=== PATIENT | male | born 1990 | race Two or more races ===

== ENCOUNTER 2025-04-03 22:22 | Emergency (ER) | payer MEDICAID, OTHER ==
[~2025-04-03] VITALS: Ht 175.3 cm; Wt 72.7 kg
[2025-04-03 22:45] VITALS: PULSE 65; RESP 12; O2SAT 99
--- NOTE | 2025-04-03 22:50 | ED.PDOC ---
Psychiatric HPI Comments HPI: Initial Vitals BP: 122/77 HR: 80 RR: 20 O2: 97% Temp: Past Medical History: Unknown Past Surgical History: Unknown Social History: Unknown HPI: Poor Historian. 35-year-old male brought in by ambulance for altered mental status. Patient appears homeless. Bystander called 911 when he noticed that the patient is acting bizarre. The sales support associate was also at the scene. They brought the patient against his will into the ambulance and restrained him and put a spit mask on his face. Patient has been speaking gibberish and racing thoughts and unable to answer most of the questions however he is able to speak. Patient refuses to answer most of the questions. Patient is not cooperative. Patient appears to be gravely disabled. Past medical history and past surgical history and social history is all unknown to us. He arrived as a Jermaine Chavez. His vital signs however per EMS were stable. He was moving all four extremities. No evidence of fall or trauma or injuries per EMS. When I asked the patient's name he said Angel. When asked him what drugs he did not quite directly admit to use of methamphetamine. Patient is not on any medications. REVIEW OF SYSTEMS: Limited given the patient's altered mental status and need for psychiatric evaluation and lack of cooperation. PHYSICAL EXAM: General: ----mild----acute distress, awake and alert. Head: normocephalic, atraumatic. Neck: supple, trachea is midline, no swelling. Cervical spine: Palpation of the posterior midline of the cervical spine reveals no focal swelling, erythema, focal tenderness to palpation. Patient has normal range of motion. Throat: Normal phonation. Eyes:, no erythema, no purulent discharge, no proptosis, no icterus. Heart: regular rate, regular rhythm, no significant murmur appreciated. Lungs: no apparent respiratory distress, Able to speak in full sentences. No wheezing, no rhonchi, no crackles. No stridors Clear to auscultation bilaterally. Abdomen: non tender to palpation, non distended, soft, no guarding, no rebound, + bowel sounds. Neuro: Awake, Alert, oriented to name, self, situation, follows commands GCS=15. Speech is normal. Skin: no petechia, no purpura, no cyanosis, non-pale, not jaundice. Lower extremities: --no - Pitting edema no deformity, no focal swelling, no calf TTP. Makes eye contact. moves all four extremities. Face: no apparent facial droop. No nuchal rigidity, Kernig's sign, Brudzinski's sign, no meningeal signs. ED COURSE: DISCLAIMER: This medical document was created using an electronic medical record system with voice recognition software and computerized dictation system. Although this do cument has been carefully reviewed, there might still be some phonetic and typographical errors. Occasional wrong-word or "sound-alike" substitutions may have occurred due to the inherent limitations of voice recognition software. These areas are purely typographical due to imperfections of the software programs and do not reflect any compromise in the patient's medical care. Please read the chart carefully and recognize, using context, where these substitutions have occurred. Chief Complaint: Mental Health Time Seen by MD: 22:49 Reviewed Notes: Nurses Notes Information Source: Patient, Emergency Med Personnel Mode of Arrival: EMS Past Medical History PAST MEDICAL HISTORY: Pt Confused Surgical History: Pt Confused Family History Family History: Pt Confused Social History Smoker: Pt Confused Alcohol: Pt Confused Drugs: Pt Confused Lives In: Pt Confused Was a procedure done? Was a procedure done?: No Psych Differential Dx Psych. Differential Dx: Anxiety, Bipolar Disorder, Depression, Hopeless, No symptoms Reported, Panic Disorder, Schizoprenia, Sleepless, Suicidal Suicidal Differential Dx: Alcohol Abuse, Depression, Personality Disorder, Schizoprenia, Substance Abuse X-Ray, Labs, Meds, VS Vital Signs Date Time Temp Pulse Resp B/P (MAP) Pulse Ox O2 Delivery O2 Flow Rate FiO2 04/04/25 02:00 92 14 110/67 (81) 96 04/04/25 00:00 98.0 90 13 119/71 (87) 97 98.0 04/03/25 23:55 Room Air* 0 21 04/03/25 22:45 95 12 102/62 (75) 96 04/03/25 22:45 65 12 99 Room Air* 0 21 04/03/25 22:27 97.0 80 18 123/75 97 97.0 Lab Test 04/04/25 01:00 10/9/25 23:23 Range/Units Urine Opiates Screen Neg NEGATIVE Urine Fentanyl Screen Neg NEGATIVE Urine Barbiturates Screen Neg NEGATIVE Urine Phencyclidine Screen Neg NEGATIVE Urine Amphetamines Screen Pos NEGATIVE Urine Benzodiazepines Screen Neg NEGATIVE Urine Cocaine Screen Neg NEGATIVE Urine Cannabinoids Screen Neg NEGATIVE White Blood Count 6.8 4.4-10.8 10^3/uL Red Blood Count 4.23 L 4.5-5.90 10^6/uL Hemoglobin 13.3 L 13.5-17.5 g/dL Hematocrit 38.1 L 41.0-53.0 % Mean Corpuscular Volume 90.0 80.0-100.0 fL Mean Corpuscular Hemoglobin 31.4 28.0-32.0 pg Mean Corpuscular Hemoglobin Concent 34.9 32.0-36.0 g/dL Red Cell Distribution Width 13.4 11.8-14.3 % Platelet Count 281 140-450 10^3/uL Mean Platelet Volume 7.7 6.9-10.8 fL Neutrophils (%) (Auto) 40.9 37.0-80.0 % Lymphocytes (%) (Auto) 45.3 10.0-50.0 % Monocytes (%) (Auto) 9.3 0.0-12.0 % Eosinophils (%) (Auto) 3.6 0.0-7.0 % Basophils (%) (Auto) 0.9 0.0-2.0 % Neutrophils # (Auto) 2.8 1.6-8.6 10 ^3/uL Lymphocytes # (Auto) 3.1 0.4-5.4 10 ^3/uL Monocytes # (Auto) 0.6 0-1.3 10 ^3/uL Eosinophils # (Auto) 0.2 0-0.8 10 ^3/uL Basophils # (Auto) 0.1 0-0.2 10 ^3/uL Nucleated Red Blood Cells 0.3 % Sodium Level 140 136-145 mmol/L Potassium Level 3.7 3.5-5.1 mmol/L Chloride Level 102 98-107 mmol/L Carbon Dioxide Level 28 20-31 mmol/L Anion Gap 10 5-15 Blood Urea Nitrogen 8 L 9-23 mg/dL Creatinine 1.02 0.700-1.30 mg/dL Glomerular Filtration Rate Calc 100 >90 mL/min BUN/Creatinine Ratio 7.8 L 10.0-20.0 Serum Glucose 98 74-106 mg/dL Calcium Level 9.1 8.7-10.4 mg/dL Magnesium Level 2.1 1.6-2.6 mg/dL Total Bilirubin 0.7 0.2-1.0 mg/dL Aspartate Amino Transferase (AST) 29 13-40 U/L Alanine Aminotransferase (ALT) 13 7-40 U/L Alkaline Phosphatase 86 46-116 U/L Creatine Kinase 282 H 46-171 U/L Total Protein 6.8 5.7-8.2 g/dL Albumin 4.1 3.2-4.8 g/dL Current Medications Medications (Trade) Dose Ordered Sig/Christine Route Start Time Stop Time Status Last Admin Lorazepam (Ativan Inj) 1 mg ONCE ONCE IV 04/03/25 23:00 04/03/25 23:01 DC 04/03/25 23:20 Sodium Chloride 1,000 ml @ 1,000 mls/hr Q1H ONCE IV 04/03/25 23:00 04/03/25 23:59 DC 04/03/25 23:20 Time of 1ST Reevaluation: 22:49 Reevaluation 1ST: Unchanged Time of 2ND Reevaluation: 04:10 (Patient has been medically cleared awaiting for tele psych evaluation and hospital social worker.) Time of 3RD Reevaluation: 05:53 (The care of this patient was signed out to Dr. Nicholas. Patient is still waiting for tele psych evaluation and psychiatric placement.) Patient Education/Counseling: Other (Altered and confused) Family Education/Counseling: No Family Present Comments MDM: patient presented with the above HPI.---altered mental status, agitation, need for psychiatric evaluation and hold---workup was initiated. patient was found with the above mentioned diagnosis. the following medications were ordered: please refer to order lists of meds and tests obtained by myself Dr. Sandoval. Patient ED course and VS have been stabilized. Patient has been reassessed in the ED and remained in a stable condition. Escalation of care considered: Consideration of escalation to observation or admission The care of this patient was signed out to Dr. Nicholas. Patient is awaiting tele psych evaluation and placement and social service consult as well. Patient has been medically cleared. All the reports of any imaging studies that were ordered by myself were reviewed by myself. Departure 1 Departure Time of Disposition: 05:54 Impression: Primary Impression: Patient needs psychiatric hold for evaluation Additional Impressions: Altered mental status Methamphetamine abuse Disposition: 30 STILL A PATIENT Condition: Guarded Discharged With: Self Critical Care Note Critical Care Time?: No I personally scribed for JOSUÉ SANDOVAL DO ([email or web address]) on 04/03/25 at 22:50. E lectronically submitted by Levon Horowitz ([facility]). I personally scribed for JOSUÉ SANDOVAL DO ([email or web address]) on 04/03/25 at 23:29. Electronically submitted by Levon Horowitz ([facility]). JOSÉU SANDOVAL DO Apr 03, 2025 22:50
[2025-04-03] MEDS: LORazepam 2MG/ML-1ML VIAL IV ONE (23:20)
[2025-04-03] MEDS: SODIUM CHLORIDE 0.9% 1,000 ML IV ONE (23:20)
[2025-04-03 23:42] LABS: Hematocrit 38.1 % (41.0-53.0); Hemoglobin 13.3 g/dL (13.5-17.5); Mean Corpuscular Hemoglobin 31.4 pg (28.0-32.0); Mean Corpuscular Volume 90.0 fL (80.0-100.0); Nucleated Red Blood Cells % 0.3 %
[2025-04-04] LABS: Alanine Aminotransferase 13 U/L (7-40); Albumin 4.1 g/dL (3.2-4.8); Alkaline Phosphatase 86 U/L (46-116); Anion Gap 10 (5-15); BUN/Creatinine Ratio 7.8 (10.0-20.0); Bilirubin, Total 0.7 mg/dL (0.2-1.0); Blood Urea Nitrogen 8 mg/dL (9-23); Calcium 9.1 mg/dL (8.7-10.4); Carbon Dioxide 28 mmol/L (20-31); Chloride 102 mmol/L (98-107); Creatine Kinase IFCC 282 U/L (46-171); Glucose 98 mg/dL (74-106); Magnesium 2.1 mg/dL (1.6-2.6); Potassium 3.7 mmol/L (3.5-5.1); Sodium 140 mmol/L (136-145); Total Protein 6.8 g/dL (5.7-8.2)
[2025-04-04 01:39] LABS: Amphetamine Screen, Urine Pos (NEGATIVE); Barbiturate Scree,Urine Neg (NEGATIVE); Benzodiazephine Screen, Urine Neg (NEGATIVE); Cannabinoid Screen, Urine Neg (NEGATIVE); Cocaine Screen, Urine Neg (NEGATIVE); Phencyclidine Screen, Urine Neg (NEGATIVE)
[2025-04-04 05:05] LABS: Opiate Scree,Urine Neg (NEGATIVE)
--- NOTE | 2025-04-04 06:12 | DVHINCON2 ---
Date of Service if different f: Apr 04, 2025 Time of Service: 05:46 Consult Consult Note PSYCHIATRY ED NEW CONSULT HPI: 34 yo pt with PPH of schizophrenia and meth use disorder and PMH of HIV presents to ED BIBA for safety, psychiatric stabilization, and possible med initiation/optimization in setting of homelessness, med noncompliance, meth intoxication, psychosis and AMS. Psychiatry consulted for safety evaluation and recommendations in context of current presentation Pt reports "i am addicted to meth and i keep using it to have sex with men when I am on Meri methamphetamine". Pt restrained en route to ED due to aggression towards EMS Pt p/w moderate thought disorder, confusion, thought blocking, disorganized speech, disorganized TP, paranoia, RTIS, poor sleep, anxiety, some decline in self care, NC/NT AVH. Pt limited historian with limited J/I and appears to have baseline thought disorder in setting of SPMI dx complicated by severe meth use disorder Does not have active outpt MH services established at this time Currently not on any psychotropic agents for past several months, prior psych med trials include olanzapine, hx of med noncompliance noted BRENT hx: Long struggles with meth dependency including heavy use [employer], UDS + for meth SH: Single, no children, unemployed, chronically homeless, limited support system noted (immediate family). Unknown trauma hx FH: Denies FH of psych hospitalizations, suicide attempts, or completed suicides PMH: HIV + Denies hx of SI/SIB/SA/PSG although several prior psych hospitalizations/5150 GD holds in past for psychosis. Denies history of violence, aggression, or assaultive behaviors. Does not have access to firearms MSE: General Appearance/Behavior: Alert/awake; appears stated age, marginal grooming/hygiene; calm and cooperative, fair eye contact, no PMA/PMR Speech: incoherent at times Thought Process: disorganized, loose, impoverished Thought Content: Abnormal Thoughts/Perceptions: denies dissociative symptoms Homicidality / Violent Thoughts: adamantly denies HI Suicidality: adamantly denies SI Hallucinations: +AH Delusions: +PI Obsessions /compulsions: None Judgment/Insight: marginal to limited Mood & Affect: "okay" with mood-congruent, appropriate Orientation: oriented x 3 Attention/Concentration: appears intact Cognition: grossly intact Assessment: 34 yo pt with PPH of schizophrenia and meth use disorder and PMH of HIV presents to ED BIBA for safety, psychiatric stabilization, and possible med initiation/optimization in setting of homelessness, med noncompliance, meth intoxication, psychosis and AMS. Pt p/w moderate thought disorder, confusion, thought blocking, disorganized speech, disorganized TP, paranoia, RTIS, poor sleep, anxiety, some decline in self care, NC/NT AVH. Pt limited historian with limited J/I and appears to have baseline thought disorder in setting of SPMI dx complicated by severe meth use disorder and ongoing med noncompliance No outpt MH services at present Pt is appropriate for inpatient psychiatric admission for further safety, psychiatric stabilization, and possible medication initiation/optimization. Pt willing to transfer to inpt psych facility voluntarily. Consider 5150 hold for GD ONLY if needed for transfer or if no voluntary beds are available. Pt may also benefit from housing/subst abuse/MH resources during this admission Primary Diagnosis: Schizophrenia, CUT. METH use disorder, moderate/severe. R/o SIPD Recommend VOL transfer to inpt psych facility for higher level of care 1:1 sitter is recommended Maintain elopement precautions Recommend restart Olanzapine 10 mg bid - first dose now If patient later refuses voluntary hospitalization/ requests to be discharged from ED prior to transfer, please place pt on 5150 GD hold Pt verbalized understanding and is receptive to above tx plan This case was discussed with ED nurse/provider and all parties in agreement with above tx plan Marco Antonio Sanders MD Plan discussed with: Patient MARCO ANTONIO SANDERS MD Apr 04, 2025 06:12
[2025-04-04] MEDS: OLANZapine 5 MG TAB PO STA (06:27)
[2025-04-04 07:28] VITALS: BP 101/56; TEMP 97.9
[2025-04-04 07:29] VITALS: PULSE 96; RESP 13; O2SAT 97
== END 2025-04-04 12:14 | disposition left against medical advice (07) ==
LOC: EDBD 22:22 → ER 22:28
DX: Z04.6 Encounter for general psychiatric examination, requested by authority (principal); F15.20 Other stimulant dependence, uncomplicated; R41.82 Altered mental status, unspecified; Z59.00 Homelessness unspecified
CPT/HCPCS: 36415; 80053; 80307; 82550; 83735; 85025; 96361; 96374; 99285; J2060; J7030